=== PATIENT | female | born 1935 | race Caucasian/White ===

== ENCOUNTER 2017-04-30 14:48 | Inpatient (IN) | payer MEDICARE, BC ==
[~2017-04-30] VITALS: Ht 157.5 cm; Wt 39.7 kg
[~2017-04-30 14:48] MED LIST: ASPI-605 PO; CARB-93 PO; ESCI10TA PO; FLUD0.1T PO; LATA2.5D7 EACHEYE; MELA3TAB PO; QUET25TA PO; QUET50TA PO; RASA1TAB PO; ROSU20TA PO
[2017-04-30] MEDS ORDERED: DOCU250C14 PO (15:37)
[2017-04-30 15:54] LABS: CARBON DIOXIDE 27 mmol/L (21-32); CHLORIDE 105 mmol/L (98-107); CREATININE 1.2 mg/dL (0.6-1.3); GLUCOSE 248 mg/dL (74-106); POTASSIUM 3.7 mmol/L (3.5-5.1); UREA NITROGEN, BLOOD 25 mg/dL (7-18)
[2017-04-30 16:01] LABS: BASOPHILS # (AUTO) 0.1 K/uL (0.0-8.0); BASOPHILS % (AUTO) 0.5 % (0.0-2.0); EOSINOPHILS # (AUTO) 0.1 K/uL (0.0-0.7); EOSINOPHILS % (AUTO) 0.8 % (0.0-7.0); HEMATOCRIT 44.7 % (37-47); HEMOGLOBIN 15.1 G/DL (12.0-16.0); LYMPHOCYTES # (AUTO) 1.5 K/UL (0.8-4.8); LYMPHOCYTES % (AUTO) 12.8 % (20.5-51.5); MEAN CORPUSCULAR HEMOGLOBIN 31.9 UUG (27.0-31.0); MEAN CORPUSCULAR HGB CONC 34 g/dL (32.0-37.0); MEAN CORPUSCULAR VOLUME 94.4 FL (81.0-99.0); MONOCYTES # (AUTO) 0.5 K/UL (0.1-1.30); NEUTROPHILS # (AUTO) 9.2 K/UL (1.8-8.9); NEUTROPHILS % (AUTO) 81.9 % (38.5-71.5); PLATELET COUNT (AUTO) 258 K/UL (150-450); RED BLOOD CELL COUNT(AUTO) 4.74 MIL/UL (4.2-5.4); WHITE BLOOD COUNT (AUTO) 11.4 K/UL (4.0-11.2)
[2017-04-30 16:08] LABS: ALANINE AMINOTRANSFERASE 17 U/L (14-59); ALKALINE PHOSPHATASE 94 U/L (50-136); ASPARTATE AMINOTRANSFERASE 38 U/L (15-37); BILIRUBIN,DIRECT 0.1 mg/dL (0.0-0.2); BILIRUBIN,TOTAL 0.6 mg/dL (0.2-1.0); TOTAL PROTEIN, SERUM 8.5 g/dL (6.4-8.2)
--- NOTE | 2017-04-30 16:08 | NUR ---
PT RESTING IN BED, FAMILY AT THE BEDSIDE.
[2017-04-30] MEDS ORDERED: IV NORMAL SALINE 1000 ML BAG IV ONE (16:30)
[2017-04-30] MEDS ORDERED: PIPERACILLIN SODIUM/TAZOBACTAM 3.375 G in IV DEXTROSE 5% 50 ML IV ONE (16:30)
[2017-04-30] MEDS ORDERED: PIPERACILLIN/TAZOBACTAM/D5W 50 ML IV ONE (16:43)
[2017-04-30 17:21] LABS: *BILIRUBIN,URIN NEGATIVE (NEGATIVE); *BLOOD, URINE NEGATIVE (NEGATIVE); *CLARITY,URINE CLEAR (CLEAR); *COLOR,URINE YELLOW (YELLOW); *KETONES,URINE NEGATIVE (NEGATIVE); *PROTEIN,URINE 2+ (NEGATIVE); LEUKOCYTE ESTERASE ,URINE NEGATIVE (NEGATIVE); NITRITE, URINE NEGATIVE (NEGATIVE); UGLUCOSE TRACE (NEGATIVE)
[2017-04-30 17:28] LABS: BACTERIA,URINE NONE SEEN /HPF (NONE SEEN); RBC,URINE 0-3 /HPF (0-3); SQUAMOUS EPITHELIAL CELL,UR FEW /HPF (NONE SEEN); WBC,URINE 0-3 /HPF (0-3)
--- NOTE | 2017-04-30 18:05 | NUR ---
PT REMAINES ON CONTINEOUS MOITORING, VITAL STABLE AND UNCHANGED, NO S/S SEPSIS NOTED.
--- NOTE | 2017-04-30 18:40 | NUR ---
NEW ADMISSION TO ROOM 210 PATIENT ALERT AWAKE AND CONFUSED IN NO ACUTE DISTRESS. SR ON WIRE BRUSHER.
--- NOTE | 2017-04-30 19:00 | NUR ---
UNABLE TO FINISH ADMISSION ASSESSMENT, ENDORSED TO GALO TODD.
[2017-04-30] MEDS ORDERED: ZOLPIDEM 5 MG TABLET PO PRN (19:45)
[2017-04-30] MEDS ORDERED: ACETAMINOPHEN 325 MG TABLET PO PRN (19:45)
[2017-04-30] MEDS ORDERED: CEFTRIAXONE 1 G in IV DEXTROSE 5% 50 ML IV SCH (19:45)
[2017-04-30] MEDS ORDERED: Z GUARD REMEDY PASTE 57 GM TUBE TOP PRN (19:45)
[2017-04-30] MEDS ORDERED: HYDROCODONE/APAP 10-325 MG TABLET PO PRN (19:45)
[2017-04-30] MEDS ORDERED: ENOXAPARIN SODIUM 40 MG/0.4 ML DISP.SYRIN SQ SCH (19:45)
[2017-04-30] MEDS ORDERED: MAGNESIUM HYDROXIDE 30 ML LIQUID UDC PO PRN (19:45)
[2017-04-30] MEDS ORDERED: ONDANSETRON 4 MG/2 ML VIAL IV PRN (19:45)
[2017-04-30] MEDS ORDERED: HYDROCODONE/APAP 5-325MG TABLET PO PRN (19:45)
[2017-04-30 20:00] VITALS: BP 138/70
[2017-04-30] MEDS: MELATONIN 3 MG TABLET PO SCH (21:00)
[2017-04-30] MEDS: IV NS 1000 ML 1,000 ML IV PRN (21:21)
[2017-04-30] MEDS ORDERED: ESCITALOPRAM OXALATE 10 MG TABLET ONE (21:21)
[2017-04-30] MEDS: ESCITALOPRAM OXALATE 10 MG TABLET PO SCH (21:22)
[2017-04-30] MEDS: QUETIAPINE FUMARATE 25 MG TABLET PO SCH (21:22)
[2017-04-30] MEDS ORDERED: ATORVASTATIN 40 MG TABLET ONE (21:22)
[2017-04-30] MEDS: ATORVASTATIN 40 MG TABLET PO SCH (21:22)
[2017-04-30] MEDS ORDERED: QUETIAPINE FUMARATE 25 MG TABLET ONE (21:23)
[2017-04-30] MEDS ORDERED: CEFTRIAXONE 1 G VIAL ONE (21:35)
[2017-05-01 00:10] VITALS: BP 137/52
[2017-05-01 04:01] VITALS: BP 131/62
--- NOTE | 2017-05-01 06:00 | NUR ---
pt alert,oriented to her name only ,confused and incoherent at times,denies any pain,incontinent of bladder, had smear of stool, sinus tessie on monitor.ate dinner well 100% last night fed by daughter.vss,afebrile, kept clean and dry ,bed alarm active at all times, kept iv fluids, given rocephine without any adverse effects. kept attended.no changes overnight.
[2017-05-01 06:44] LABS: BASOPHILS % (AUTO) 0.1 % (0.0-2.0); EOSINOPHILS # (AUTO) 0.1 K/uL (0.0-0.7); EOSINOPHILS % (AUTO) 1.2 % (0.0-7.0); HEMATOCRIT 35.5 % (37-47); HEMOGLOBIN 12.3 G/DL (12.0-16.0); LYMPHOCYTES # (AUTO) 1.9 K/UL (0.8-4.8); LYMPHOCYTES % (AUTO) 20.5 % (20.5-51.5); MEAN CORPUSCULAR HEMOGLOBIN 32.4 UUG (27.0-31.0); MEAN CORPUSCULAR HGB CONC 35 g/dL (32.0-37.0); MEAN CORPUSCULAR VOLUME 93.8 FL (81.0-99.0); MONOCYTES # (AUTO) 0.5 K/UL (0.1-1.30); MONOCYTES % (AUTO) 5.6 % (0.0-11.0); NEUTROPHILS # (AUTO) 6.6 K/UL (1.8-8.9); NEUTROPHILS % (AUTO) 72.6 % (38.5-71.5); PLATELET COUNT (AUTO) 183 K/UL (150-450); RED BLOOD CELL COUNT(AUTO) 3.79 MIL/UL (4.2-5.4); WHITE BLOOD COUNT (AUTO) 9.1 K/UL (4.0-11.2)
[2017-05-01 07:00] LABS: CARBON DIOXIDE 27 mmol/L (21-32); CHLORIDE 106 mmol/L (98-107); CHOLESTEROL 121 mg/dL (<200); CREATININE 0.8 mg/dL (0.6-1.3); GLUCOSE 124 mg/dL (74-106); HDL CHOLESTEROL 41 mg/dL (40-60); MAGNESIUM 1.9 mg/dL (1.8-2.4); PHOSPHOROUS 3.2 mg/dL (2.5-4.9); POTASSIUM 3.2 mmol/L (3.5-5.1); TRIGLYCERIDES 84 MG/DL (30-150); UREA NITROGEN, BLOOD 15 mg/dL (7-18)
[2017-05-01 07:07] LABS: THYROID STIMULATING HORMONE 3.008 mIU/mL (0.358-3.740)
[2017-05-01] MEDS: PANTOPRAZOLE SODIUM 40 MG TABLET.DR PO SCH (08:01)
[2017-05-01] MEDS: CARBIDOPA/LEVODOPA 25-100MG TABLET PO SCH ×4 (08:01→19:15)
[2017-05-01] MEDS: DOCUSATE SODIUM 250 MG CAPSULE PO SCH ×2 (08:01→17:11)
[2017-05-01] MEDS: FLUDROCORTISONE ACETATE 0.1 MG TABLET PO SCH (08:01)
[2017-05-01] MEDS: QUETIAPINE FUMARATE 25 MG TABLET PO SCH ×3 (10:07→21:40)
[2017-05-01] MEDS: IV NS 1000 ML 1,000 ML IV PRN (11:23)
[2017-05-01 11:43] VITALS: BP 159/70
[2017-05-01] MEDS ORDERED: POTASSIUM CHLORIDE 20 MEQ POWDER PACKET PO ONE (12:00)
--- NOTE | 2017-05-01 14:54 | NUR ---
PATIENT SEEN BY DR. DUONG AND BY DR. BARONE.
[2017-05-01 15:33] VITALS: BP 115/78
--- NOTE | 2017-05-01 18:43 | NUR ---
END OF SHIFT NOTE: PATIENT ALERT AND ORIENTED WNL. NO S/S OF DISTRESS THROUGHOUT SHIFT. VSS. NO S/S OF PAIN OBSERVED. TURNED AND REPOSITIONED EVERY 2 HOURS AND PRN. NEEDS MET BY STAFF.
--- NOTE | 2017-05-01 19:40 | NUR ---
Received pt in bed, alert and oriented only to name. Confused and incoherent at times but speech is mostly clear. On telemetry with monitor showing sinus rhythm and HR 63. Continuing IV fluids as ordered, IV site patent and intact w/ no s/sx infiltration. Safety measures and fall precautions maintained. Continue current plan of care.
[2017-05-01 20:25] VITALS: BP 140/63
[2017-05-01] MEDS ORDERED: CEFTRIAXONE 1 G in IV DEXTROSE 5% 50 ML IV SCH (21:00)
[2017-05-01] MEDS: ATORVASTATIN 40 MG TABLET PO SCH (21:40)
[2017-05-01] MEDS: ESCITALOPRAM OXALATE 10 MG TABLET PO SCH (21:41)
[2017-05-01] MEDS: MELATONIN 3 MG TABLET PO SCH (21:41)
[2017-05-01] MEDS: ENOXAPARIN SODIUM 30 MG/0.3 ML DISP.SYRIN SUBCUT SCH (21:42)
[2017-05-02 00:21] VITALS: BP 127/61
[2017-05-02] MEDS: IV NS 1000 ML 1,000 ML IV PRN ×2 (02:58→15:10)
[2017-05-02 04:00] VITALS: BP 150/51
[2017-05-02] MEDS: CARBIDOPA/LEVODOPA 25-100MG TABLET PO SCH ×5 (06:43→17:50)
[2017-05-02] MEDS: PANTOPRAZOLE SODIUM 40 MG TABLET.DR PO SCH (06:43)
[2017-05-02] MEDS: QUETIAPINE FUMARATE 25 MG TABLET PO SCH ×3 (08:15→21:15)
[2017-05-02] MEDS: FLUDROCORTISONE ACETATE 0.1 MG TABLET PO SCH (08:15)
[2017-05-02] MEDS: DOCUSATE SODIUM 250 MG CAPSULE PO SCH ×2 (08:16→17:50)
[2017-05-02 08:18] LABS: CARBON DIOXIDE 26 mmol/L (21-32); CHLORIDE 100 mmol/L (98-107); CREATININE 0.8 mg/dL (0.6-1.3); GLUCOSE 124 mg/dL (74-106); POTASSIUM 3.9 mmol/L (3.5-5.1); UREA NITROGEN, BLOOD 10 mg/dL (7-18)
[2017-05-02 11:22] VITALS: BP 152/51
--- NOTE | 2017-05-02 16:08 | NUR ---
IN ROOM WITH PATIENT. DOES NOT WANT PAT TO HAVE PARKINSONS MEDICATION AT THIS TIME, SAYS PT "GETS TOO SEDATED" MEDICATION WAS ALREADY CRUSHED, THROWN IN SHARPS.
[2017-05-02 16:15] VITALS: BP 160/71
--- NOTE | 2017-05-02 17:42 | NUR ---
AT BEDSIDE, ASSISTING PT WITH DINNER. PT TOLERATING WELL AND EATING A LOT MORE THAN EARLIER TODAY. ALL SAFETY AND COMFORT MEASURES MAINTAINED THROUGHOUT SHIFT, CALL LIGHT IN REACH
--- NOTE | 2017-05-02 19:20 | NUR ---
Received pt in bed, appearing to be asleep but easily arousable to name being called. Alert and oriented to name only. No apparent distress noted. Safety measures and fall precautions maintained. Continue current plan of care. Call light within reach. Continue current plan of care.
[2017-05-02 20:26] VITALS: BP 99/43
[2017-05-02] MEDS: ATORVASTATIN 40 MG TABLET PO SCH (21:15)
[2017-05-02] MEDS: MELATONIN 3 MG TABLET PO SCH (21:15)
[2017-05-02] MEDS: ESCITALOPRAM OXALATE 10 MG TABLET PO SCH (21:15)
[2017-05-02] MEDS: ENOXAPARIN SODIUM 30 MG/0.3 ML DISP.SYRIN SUBCUT SCH (21:16)
[2017-05-03] MEDS: IV NS 1000 ML 1,000 ML IV PRN (04:32)
[2017-05-03 05:51] VITALS: BP 105/62
[2017-05-03] MEDS: PANTOPRAZOLE SODIUM 40 MG TABLET.DR PO SCH (06:10)
[2017-05-03] MEDS: CARBIDOPA/LEVODOPA 25-100MG TABLET PO SCH ×2 (06:12→12:02)
[2017-05-03 06:25] LABS: ALANINE AMINOTRANSFERASE 27 U/L (14-59); ALKALINE PHOSPHATASE 68 U/L (50-136); ASPARTATE AMINOTRANSFERASE 21 U/L (15-37); BASOPHILS % (AUTO) 0.5 % (0.0-2.0); BILIRUBIN,TOTAL 0.5 mg/dL (0.2-1.0); CARBON DIOXIDE 30 mmol/L (21-32); CHLORIDE 103 mmol/L (98-107); CREATININE 0.9 mg/dL (0.6-1.3); EOSINOPHILS # (AUTO) 0.1 K/uL (0.0-0.7); EOSINOPHILS % (AUTO) 1.2 % (0.0-7.0); GLUCOSE 122 mg/dL (74-106); HEMOGLOBIN 13.4 G/DL (12.0-16.0); LYMPHOCYTES # (AUTO) 1.8 K/UL (0.8-4.8); LYMPHOCYTES % (AUTO) 27.3 % (20.5-51.5); MAGNESIUM 2.2 mg/dL (1.8-2.4); MEAN CORPUSCULAR HEMOGLOBIN 32.2 UUG (27.0-31.0); MEAN CORPUSCULAR HGB CONC 34 g/dL (32.0-37.0); MONOCYTES # (AUTO) 0.5 K/UL (0.1-1.30); NEUTROPHILS # (AUTO) 4.2 K/UL (1.8-8.9); PHOSPHOROUS 4.4 mg/dL (2.5-4.9); PLATELET COUNT (AUTO) 189 K/UL (150-450); POTASSIUM 3.9 mmol/L (3.5-5.1); RED BLOOD CELL COUNT(AUTO) 4.15 MIL/UL (4.2-5.4); UREA NITROGEN, BLOOD 14 mg/dL (7-18)
[2017-05-03 06:33] LABS: WHITE BLOOD COUNT (AUTO) 6.6 K/UL (4.0-11.2)
--- NOTE | 2017-05-03 07:12 | NUR ---
Pt in bed slept well throughout shift. Currently awake and alert, oriented to name only. Responds to name being called. Episodes of resisting care at times. No distress noted. No complaints of pain or discomfort throughout shift. Kept clean and dry. Call light within reach. Side rails up x2, bed locked and in lowest position.
--- NOTE | 2017-05-03 07:20 | NUR ---
PT SLEEPING IN BED, AWAKENS TO NAME, NO NEEDS AT THIS TIME, ALL SAFETY AND COMFORT MEASURES ATTENDED TO, CALL LIGHT IN REACH WILL CONTINUE TO MONITOR
[2017-05-03] MEDS: FLUDROCORTISONE ACETATE 0.1 MG TABLET PO SCH (08:02)
[2017-05-03] MEDS: DOCUSATE SODIUM 250 MG CAPSULE PO SCH (08:03)
[2017-05-03] MEDS: QUETIAPINE FUMARATE 25 MG TABLET PO SCH (08:03)
[2017-05-03 12:01] VITALS: BP 155/58
--- NOTE | 2017-05-03 12:03 | NUR ---
FAMILY AT BEDSIDE, DOES NOT WANT PATIENT TO HAVE PARKINSONS MED AT THIS TIME, WANTS TO VISIT WITH HER AND STATES IT MAKES HER CONFUSED
[2017-05-03] MEDS ORDERED: ROSU10TA PO (12:23)
--- NOTE | 2017-05-03 13:30 | NUR ---
DISCHARGE PROTOCOL FOLLOWED, IV REMOVED WITH NO REDNESS OR IRRITATION NOTED. DISCHARGE INSTRUCTIONS PROVIDED TO PATIENT, DAUGHTER AND . PT HAS NO BELONGINGS, PT TAKEN DOWN IN WHEELCHAIR AND LEFT IN PRIVATE CAR WITH DAUGHTER
== END 2017-05-03 13:45 | disposition home health service (06) | DRG 100 ==
LOC: ER 14:48 → TELE 17:55 → MED 05-02 09:15
DX: R56.9 Unspecified convulsions (principal); N17.0 Acute kidney failure with tubular necrosis; E87.2 Acidosis; D68.59 Other primary thrombophilia; G20 Parkinson's disease; F03.90 Unspecified dementia, unspecified severity, without behavioral disturbance, psychotic disturbance, mood disturbance, and anxiety; E11.9 Type 2 diabetes mellitus without complications; E78.5 Hyperlipidemia, unspecified; Z79.899 Other long term (current) drug therapy; Z87.820 Personal history of traumatic brain injury
CPT/HCPCS: 36415; 70030-TC; 70450; 71010; 83605; 83735; 84100; 84443; 85025; 85730; 87040; 87086; 92523; 93005; 95819; 97110; 97116; 97530; A4663; C1758; J0696; J1650; J2543; J7030; J7060

== ENCOUNTER 2017-08-26 14:07 | Inpatient (IN) | payer MEDICARE, BC ==
[~2017-08-26] VITALS: Ht 157.5 cm; Wt 53.1 kg
[~2017-08-26 14:07] MED LIST changes: -ASPI-605 PO; +DOCU250C14 PO; -LATA2.5D7 EACHEYE; +ROSU10TA PO; -ROSU20TA PO
[2017-08-26] MEDS ORDERED: ACET-2154 PO (14:20)
[2017-08-26] MEDS ORDERED: LATA2.5D2 EACHEYE (14:20)
[2017-08-26 14:56] LABS: BASOPHILS # (AUTO) 0.1 K/uL (0.0-8.0); BASOPHILS % (AUTO) 0.9 % (0.0-2.0); EOSINOPHILS % (AUTO) 0.1 % (0.0-7.0); HEMATOCRIT 39.9 % (31.2-41.9); HEMOGLOBIN 13.1 g/dL (10.9-14.3); LYMPHOCYTES # (AUTO) 1.2 K/uL (20.0-40.0); LYMPHOCYTES % (AUTO) 9.6 % (20.5-51.5); MEAN CORPUSCULAR HGB CONC 33 g/dL (32.3-35.6); MEAN CORPUSCULAR VOLUME 94.5 fL (75.5-95.3); MONOCYTES # (AUTO) 0.8 K/uL (2.0-10.0); MONOCYTES % (AUTO) 6.2 % (0.0-11.0); NEUTROPHILS # (AUTO) 10.1 K/uL (1.8-8.9); NEUTROPHILS % (AUTO) 83.2 % (38.5-71.5); PLATELET COUNT (AUTO) 232 K/uL (179-408); RED BLOOD CELL COUNT(AUTO) 4.22 MIL/uL (3.63-4.92); WHITE BLOOD COUNT (AUTO) 12.2 K/uL (3.8-11.8)
[2017-08-26 15:09] LABS: ALANINE AMINOTRANSFERASE 69 U/L (14-59); ALKALINE PHOSPHATASE 81 U/L (50-136); ASPARTATE AMINOTRANSFERASE 56 U/L (15-37); BILIRUBIN,DIRECT 0.2 mg/dL (0.0-0.2); BILIRUBIN,TOTAL 0.5 mg/dL (0.2-1.0); CARBON DIOXIDE 33 mmol/L (21-32); CHLORIDE 125 mmol/L (98-107); CREATININE 1.2 mg/dL (0.6-1.3); GLUCOSE 204 mg/dL (74-106); POTASSIUM 3.6 mmol/L (3.5-5.1); TOTAL PROTEIN, SERUM 7.1 g/dL (6.4-8.2); UREA NITROGEN, BLOOD 41 mg/dL (7-18)
[2017-08-26] MEDS ORDERED: IV D5 1/2 NS 1000 ML 1,000 ML IV ONE (15:15)
[2017-08-26 15:34] LABS: THYROID STIMULATING HORMONE 0.884 mIU/mL (0.358-3.740)
--- NOTE | 2017-08-26 15:56 | NUR ---
Lovenox dose verified with Jannet TODD.
[2017-08-26] MEDS ORDERED: ENOXAPARIN SODIUM 40 MG/0.4 ML DISP.SYRIN SQ ONE ×2 (16:00→16:11)
--- NOTE | 2017-08-26 16:16 | NUR ---
pt out of ER for CT.
--- NOTE | 2017-08-26 16:42 | NUR ---
PT PRODUCED 50 MLOF URINE, COLLECTED AND SENT TO LAB.
[2017-08-26 16:49] LABS: *BILIRUBIN,URIN NEGATIVE (NEGATIVE); *BLOOD, URINE 1+ (NEGATIVE); *CLARITY,URINE SLIGHTLY CLOUDY (CLEAR); *COLOR,URINE YELLOW (YELLOW); *KETONES,URINE NEGATIVE (NEGATIVE); *PROTEIN,URINE 2+ (NEGATIVE); LEUKOCYTE ESTERASE ,URINE TRACE (NEGATIVE); NITRITE, URINE NEGATIVE (NEGATIVE)
[2017-08-26 17:01] LABS: UGLUCOSE 1+ (NEGATIVE)
[2017-08-26 17:03] LABS: BACTERIA,URINE MODERATE /HPF (NONE SEEN); MUCUS,URINE MODERATE /LPF (0-FEW); SQUAMOUS EPITHELIAL CELL,UR MANY /HPF (NONE SEEN)
[2017-08-26 19:00] VITALS: BP 112/50
[2017-08-26] MEDS ORDERED: CEFTRIAXONE 1 G in IV DEXTROSE 5% 50 ML IV ONE (19:00)
[2017-08-26] MEDS ORDERED: CEFTRIAXONE 1 G VIAL ONE (19:22)
[2017-08-26] MEDS ORDERED: ACETAMINOPHEN 325 MG TABLET PO PRN ×2 (19:45)
[2017-08-26] MEDS ORDERED: ONDANSETRON 4 MG/2 ML VIAL IV PRN (19:45)
[2017-08-26] MEDS ORDERED: CEFTRIAXONE 1 G in IV DEXTROSE 5% 50 ML IV SCH (19:45)
[2017-08-26] MEDS ORDERED: FAMOTIDINE. 20 MG/2 ML VIAL IV SCH (21:00)
[2017-08-26] MEDS ORDERED: ACETAMINOPHEN 650 MG SUPP.RECT RC PRN (21:00)
[2017-08-26] MEDS ORDERED: DOCUSATE SODIUM 250 MG CAPSULE PO SCH (21:00)
[2017-08-26] MEDS ORDERED: DABIGATRAN ETEXILATE MESYLATE 75 MG CAPSULE PO SCH (21:00)
--- NOTE | 2017-08-26 21:26 | NUR ---
Pt. admitted to TELE, under care of Dr. Torres. Belongs List completed
--- NOTE | 2017-08-26 21:40 | NUR ---
PATIENT BROUGHT IN FROM ER, VIA STRETCHER , ACCOMPANIED BY THE DAUGHTER,ADMITTED TO TELE. PATIENT SLEEPING, EASILY AROUSING TO VERBAL/TACTILE RESPONSE. ADMISSION INFORMATION OBTAINED FROM THE DAUGHTER. NO DISTRESS NOTED. PATIENT USING O2 @ 2LPM VIA NC. FIELD RECRUITER NOTED WITH PVC'S. IV FLUID INFUSING ORDERED AT ED. V/S WNL . SKIN ASSESSMENT DONE AND PICTURES TAKEN. KEPT CLEAN AND DRY. WILL CONTINUE TO MONITOR
[2017-08-26] MEDS ORDERED: FAMOTIDINE. 20 MG/2 ML VIAL IV ONE (22:48)
[2017-08-26] MEDS: IV D5W 1000ML 1,000 ML IV PRN (23:30)
[2017-08-27] VITALS: BP 156/49
--- NOTE | 2017-08-27 | NUR ---
PATIENT ON NPO ORDERED
[2017-08-27 04:00] VITALS: BP 147/54
--- NOTE | 2017-08-27 06:38 | NUR ---
PATIENT SLEEPING INTERMITTENTLY WITH NO DISTRESS . ON O2 @ 2LPM VIA NC. CONTINUING ON IV FLUIDS ORDERED. F/C DRAINING YELLOW URINE. CNC MILLING MACHINIST SHOWS SR WITH OCCASIONAL PVC'S. CONTINUING ON NPO. SAFETY MEASURES OBSERVED. CALL LIGHT IN REACH
[2017-08-27 06:52] LABS: BASOPHILS % (AUTO) 0.2 % (0.0-2.0); EOSINOPHILS % (AUTO) 0.3 % (0.0-7.0); HEMATOCRIT 37.9 % (31.2-41.9); HEMOGLOBIN 12.3 g/dL (10.9-14.3); LYMPHOCYTES # (AUTO) 1.6 K/uL (20.0-40.0); LYMPHOCYTES % (AUTO) 13.1 % (20.5-51.5); MEAN CORPUSCULAR HEMOGLOBIN 30.9 uug (24.7-32.8); MEAN CORPUSCULAR HGB CONC 33 g/dL (32.3-35.6); MONOCYTES # (AUTO) 0.7 K/uL (2.0-10.0); NEUTROPHILS # (AUTO) 9.6 K/uL (1.8-8.9); NEUTROPHILS % (AUTO) 80.4 % (38.5-71.5); PLATELET COUNT (AUTO) 215 K/uL (179-408); RED BLOOD CELL COUNT(AUTO) 3.99 MIL/uL (3.63-4.92); WHITE BLOOD COUNT (AUTO) 11.9 K/uL (3.8-11.8)
[2017-08-27] MEDS ORDERED: PANTOPRAZOLE SODIUM 40 MG TABLET.DR PO SCH (07:00)
[2017-08-27 07:25] LABS: ALANINE AMINOTRANSFERASE 71 U/L (14-59); ALKALINE PHOSPHATASE 73 U/L (50-136); ASPARTATE AMINOTRANSFERASE 42 U/L (15-37); BILIRUBIN,TOTAL 0.4 mg/dL (0.2-1.0); CARBON DIOXIDE 32 mmol/L (21-32); CHLORIDE 124 mmol/L (98-107); CHOLESTEROL 203 mg/dL (<200); CREATININE 0.8 mg/dL (0.6-1.3); GLUCOSE 233 mg/dL (74-106); HDL CHOLESTEROL 30 mg/dL (40-60); MAGNESIUM 2.5 mg/dL (1.8-2.4); PHOSPHOROUS 2.6 mg/dL (2.5-4.9); POTASSIUM 3.4 mmol/L (3.5-5.1); TOTAL PROTEIN, SERUM 6.4 g/dL (6.4-8.2); TRIGLYCERIDES 215 MG/DL (30-150); UREA NITROGEN, BLOOD 32 mg/dL (7-18)
[2017-08-27] MEDS ORDERED: FLUDROCORTISONE ACETATE 0.1 MG TABLET PO SCH (09:00)
[2017-08-27] MEDS ORDERED: CARBIDOPA/LEVODOPA 25-100MG TABLET PO SCH (09:00)
[2017-08-27] MEDS: ENOXAPARIN SODIUM 60 MG/0.6 ML DISP.SYRIN SQ SCH ×2 (09:47→21:22)
[2017-08-27] MEDS: FAMOTIDINE. 20 MG/2 ML VIAL IV SCH (10:00)
[2017-08-27 12:08] VITALS: BP 132/56
[2017-08-27 15:45] VITALS: BP 149/69
[2017-08-27] MEDS: IV D5W 1000ML 1,000 ML IV PRN (16:15)
[2017-08-27] MEDS: CEFTRIAXONE 1 G in IV DEXTROSE 5% 50 ML IV SCH (17:04)
[2017-08-27 19:00] VITALS: BP 137/59
--- NOTE | 2017-08-27 19:47 | NUR ---
RECEIVED SHIFT REPORT FROM DAY SHIFT NURSE. PATIENT RESTING COMFORTABLY IN BED. NO S/S OF DISTRESS. STABLE CONDITION. PATIENT IS NON-VERBAL, CONFUSED. OXYGEN ON. BED IN LOCKED/LOW POSITION, SIDE RAILS UP X2, BED ALARM ON. SAFETY/ COMFORT WILL BE PROVIDED.
[2017-08-27] MEDS ORDERED: CLONIDINE TTS 2 PATCH TD SCH (23:45)
[2017-08-28] VITALS: BP 188/53
[2017-08-28] MEDS ORDERED: CLONIDINE TTS 2 PATCH TD ONE (00:26)
[2017-08-28] MEDS: LATANOPROST OPHT DROP 2.5 ML BOTTLE EACHEYE SCH ×2 (02:28→21:59)
[2017-08-28 04:00] VITALS: BP 150/63
[2017-08-28 06:52] LABS: BASOPHILS % (AUTO) 0.2 % (0.0-2.0); EOSINOPHILS % (AUTO) 0.4 % (0.0-7.0); HEMATOCRIT 36.8 % (31.2-41.9); LYMPHOCYTES # (AUTO) 1.2 K/uL (20.0-40.0); LYMPHOCYTES % (AUTO) 10.5 % (20.5-51.5); MEAN CORPUSCULAR HEMOGLOBIN 30.5 uug (24.7-32.8); MEAN CORPUSCULAR HGB CONC 33 g/dL (32.3-35.6); MEAN CORPUSCULAR VOLUME 93.8 fL (75.5-95.3); MONOCYTES # (AUTO) 0.5 K/uL (2.0-10.0); MONOCYTES % (AUTO) 4.4 % (0.0-11.0); NEUTROPHILS # (AUTO) 9.6 K/uL (1.8-8.9); NEUTROPHILS % (AUTO) 84.5 % (38.5-71.5); PLATELET COUNT (AUTO) 248 K/uL (179-408); RED BLOOD CELL COUNT(AUTO) 3.92 MIL/uL (3.63-4.92); WHITE BLOOD COUNT (AUTO) 11.4 K/uL (3.8-11.8)
[2017-08-28 07:06] LABS: CARBON DIOXIDE 29 mmol/L (21-32); CHLORIDE 117 mmol/L (98-107); CREATININE 0.8 mg/dL (0.6-1.3); GLUCOSE 221 mg/dL (74-106); MAGNESIUM 2.4 mg/dL (1.8-2.4); PHOSPHOROUS 2.6 mg/dL (2.5-4.9); POTASSIUM 3.1 mmol/L (3.5-5.1); UREA NITROGEN, BLOOD 25 mg/dL (7-18)
[2017-08-28 07:28] LABS: URIC ACID 4.2 mg/dL (2.6-6.0)
--- NOTE | 2017-08-28 08:00 | NUR ---
AWAKE CONFUSED ,FORGETFUL ORTX1 ONLY NAME NO SOB OR PAIN CONTINUE IVF KEEP NPO ON FALL /ASPIRATION PRECAUTION BED ALARM ON AND CALL LIGHT IN REACH
[2017-08-28] MEDS: ENOXAPARIN SODIUM 60 MG/0.6 ML DISP.SYRIN SQ SCH ×2 (08:49→21:58)
[2017-08-28] MEDS: FAMOTIDINE. 20 MG/2 ML VIAL IV SCH (11:22)
[2017-08-28 12:09] VITALS: BP 164/49
--- NOTE | 2017-08-28 12:30 | NUR ---
FAMILY AT BEDSIDE PATIENT WAS HUNGRY Kyler SNIDER WAS INFORM AND ORDER ST EVAL PRIOR START FEEDING PATIENT WAS ORDER AND DAUGHTER WAS EXPLAINED
[2017-08-28] MEDS ORDERED: POTASSIUM CHLORIDE 50 ML IV SCH (13:00)
[2017-08-28] MEDS: IV D5W 1000ML 1,000 ML IV PRN (13:04)
[2017-08-28 14:30] VITALS: BP 155/69
[2017-08-28] MEDS: POTASSIUM CHLORIDE 10 MEQ in IV NORMAL SALINE 50 ML IV SCH ×2 (15:22→16:27)
[2017-08-28] MEDS: IV D5 1/2 NS 1000 ML 1,000 ML IV PRN (17:26)
[2017-08-28] MEDS: CEFTRIAXONE 1 G in IV DEXTROSE 5% 50 ML IV SCH (17:27)
--- NOTE | 2017-08-28 18:00 | NUR ---
HEMODYNAMIC STATUS STABLE SAFETY MEASURE PROVIDED CALL LIGHT IN REACH AND BED ALARM ON
[2017-08-28 20:00] VITALS: BP 115/61
--- NOTE | 2017-08-28 20:17 | NUR ---
RECEIVED SHIFT REPORT FROM DAY SHIFT NURSE. PATIENT RESTING COMFORTABLY IN BED. ELEVATED BP BUT NOTIFIED FROM DAY SHIFT NURSE THAT MD INFORMED OF ELEVATED BP AND THAT CATAPRES 0.2 MG PLACED YESTERDAY WILL KICK IN SOON AND DECREASE THE BLOOD PRESSURE. OTHERWISE, STABLE CONDITION, NO S/S OF DISTRESS. SWALLOW EVAL PENDING, CONTINUES TO BE NPO.
[2017-08-29 00:53] VITALS: BP 100/58
[2017-08-29 04:46] VITALS: BP 126/61
[2017-08-29 07:32] LABS: CARBON DIOXIDE 29 mmol/L (21-32); CHLORIDE 117 mmol/L (98-107); CREATININE 0.6 mg/dL (0.6-1.3); GLUCOSE 208 mg/dL (74-106); POTASSIUM 3.2 mmol/L (3.5-5.1); UREA NITROGEN, BLOOD 21 mg/dL (7-18)
[2017-08-29] MEDS: FAMOTIDINE. 20 MG/2 ML VIAL IV SCH (08:02)
[2017-08-29] MEDS: ENOXAPARIN SODIUM 60 MG/0.6 ML DISP.SYRIN SQ SCH ×2 (08:03→20:40)
[2017-08-29 11:07] VITALS: BP 139/66
[2017-08-29] MEDS ORDERED: POTASSIUM CHLORIDE 20 MEQ TAB.PRT.SR PO ONE ×2 (14:30→17:30)
[2017-08-29 15:35] VITALS: BP 115/47
[2017-08-29] MEDS: CEFTRIAXONE 1 G in IV DEXTROSE 5% 50 ML IV SCH (17:31)
[2017-08-29 20:00] VITALS: BP 121/61
[2017-08-29] MEDS: LATANOPROST OPHT DROP 2.5 ML BOTTLE EACHEYE SCH (21:27)
[2017-08-30] MEDS: IV D5 1/2 NS 1000 ML 1,000 ML IV PRN ×2 (00:17→17:07)
--- NOTE | 2017-08-30 06:14 | NUR ---
PATIENT ASLEEP IN BED. NO S/S OF PAIN OR DISCOMFORT. NO RESP. DISTRESS NOTED. IVF INFUSING WELL. SLEPT WELL THROUGHOUT THE NIGHT. BED ALARM ON. CALL LIGHT IN REACH. ALL NEEDS ATTENDED. WILL CONTINUE TO MONITOR AND ASSESS.
[2017-08-30 06:29] VITALS: BP 153/85
[2017-08-30 07:09] LABS: CARBON DIOXIDE 28 mmol/L (21-32); CHLORIDE 116 mmol/L (98-107); CREATININE 0.7 mg/dL (0.6-1.3); GLUCOSE 207 mg/dL (74-106); POTASSIUM 3.6 mmol/L (3.5-5.1); UREA NITROGEN, BLOOD 16 mg/dL (7-18)
[2017-08-30] MEDS: ENOXAPARIN SODIUM 60 MG/0.6 ML DISP.SYRIN SQ SCH ×2 (07:58→20:34)
[2017-08-30] MEDS: FAMOTIDINE. 20 MG/2 ML VIAL IV SCH (08:00)
[2017-08-30 11:08] VITALS: BP 164/81
--- NOTE | 2017-08-30 12:27 | NUR ---
WOUND CARE CONSULT: PT PRESENTS WITH IMMOBILITY AND DEEP TISSUE INJURY (INTACT) TO LEFT FOOT WITH EDEMA, INTACT BLISTER TO RT FOOT, PRESENT ON ADMISSION. RECOMMENDATIONS MADE FOR SKIN PROTECTION AND WOUND CARE. DISCUSSED WITH NURSING STAFF. PT ON FIRST STEP MATTRESS. ALL SKIN PROTECTION MEASURES IN PLACE. CURRENT EDEN SCORE IS 13. WILL SEE PRN. YUN IN AGREEMENT WITH PLAN OF CARE. Addendum: 08/30/17 at 1228 by PIPPA CERVANTES RN Amended: Links added.
[2017-08-30] MEDS ORDERED: Z GUARD REMEDY PASTE 57 GM TUBE TOP PRN (12:30)
[2017-08-30 15:20] VITALS: BP 131/51
[2017-08-30] MEDS: CEFTRIAXONE 1 G in IV DEXTROSE 5% 50 ML IV SCH (17:06)
[2017-08-30 20:00] VITALS: BP 170/74
--- NOTE | 2017-08-30 20:30 | NUR ---
CALLED OUT TO DR. PANKAJ SANFORD TO INFORM HIM OF PATIENTS HIGH BLOOD PRESSURE. WAITING FOR CALL BACK.
[2017-08-30] MEDS: Z GUARD REMEDY PASTE 57 GM TUBE TOP SCH (20:33)
[2017-08-30] MEDS: LATANOPROST OPHT DROP 2.5 ML BOTTLE EACHEYE SCH (20:35)
--- NOTE | 2017-08-30 20:55 | NUR ---
RECEIVED ORDER FOR PATIENT TO HAVE NORCO 1 TAB PO PRN FOR PAIN. FACIAL GRIMACE NOTED, AND IF PAIN DOESN'T DECREASE TO CALL MD BACK FOR FURTHER ORDERS. MD AWARE OF HIGH BP. WILL CONTINUE TO MONITOR.
[2017-08-30] MEDS ORDERED: HYDROCODONE/APAP 5-325MG TABLET PO PRN (21:00)
--- NOTE | 2017-08-30 22:05 | NUR ---
NOTIFIED DR. LIRA THAT PATIENTS BLOOD PRESSURE IS DOWN TO 164/64. ALL OTHER VSS. NO NEW ORDERS AT THIS TIME. MD WILL FOLLOW UP IN AM. WILL CONTINUE TO MONITOR.
--- NOTE | 2017-08-31 06:01 | NUR ---
PATIENT ASLEEP IN BED. SLEPT WELL. IVF INFUSING WELL. NO RESP. DISTRESS NOTED. NO S/S OF PAIN OR DISCOMFORT. REPOSITIONED TO SIDE. BILATERAL HEELS OFF-LOADED FOR PRESSURE RELIEF. CALL LIGHT IN REACH. ALL NEEDS ATTENDED. WILL CONTINUE TO MONITOR.
[2017-08-31 06:26] VITALS: BP 119/99
[2017-08-31] MEDS: IV D5 1/2 NS 1000 ML 1,000 ML IV PRN ×2 (07:18→21:37)
--- NOTE | 2017-08-31 07:30 | NUR ---
received client in bed asleep. semi fowlers position. no apparent signs and symptoms of pain, distress, discomfort and SOB. bed at lowest position for safety and call light within reach for assistance. air mattress in place and bilateral heels offloading
[2017-08-31] MEDS: FAMOTIDINE. 20 MG/2 ML VIAL IV SCH (09:57)
[2017-08-31] MEDS: Z GUARD REMEDY PASTE 57 GM TUBE TOP SCH ×2 (10:03→21:37)
--- NOTE | 2017-08-31 10:15 | NUR ---
Client, daughter and in the room having a consultation on the client's condition
[2017-08-31] MEDS: RIVAROXABAN 15 MG TABLET PO SCH ×2 (11:16→18:21)
[2017-08-31 15:16] VITALS: BP 105/39
[2017-08-31] MEDS: CEFTRIAXONE 1 G in IV DEXTROSE 5% 50 ML IV SCH (18:18)
--- NOTE | 2017-08-31 19:31 | NUR ---
Client is in bed awake, alert and oriented times 1. Client has been compliant with medication and nursing care. Client bilateral heels are offloading and open to air. Client is laying supine in a high fowlers position. Client is in no apparent signs and symptoms of SOB, pain, distress or discomfort. Family has been by bedside
[2017-08-31 20:00] VITALS: BP 181/59
[2017-08-31] MEDS: METOPROLOL TARTRATE 25 MG TABLET PO SCH (21:37)
[2017-08-31] MEDS: LATANOPROST OPHT DROP 2.5 ML BOTTLE EACHEYE SCH (21:38)
--- NOTE | 2017-08-31 21:40 | NUR ---
NURSING CLINICAL NOTE: Pt has elevated BP of 181/59, no S/S noted. made aware, and ordered metoprolol. orders are carried will continue to monitor
[2017-08-31 22:00] VITALS: BP 181/59
--- NOTE | 2017-08-31 22:56 | NUR ---
NURSING CLINICAL NOTE: PT'S bp is trending down to 164/64. pt is asymptomatic. will continue to monitor
[2017-09-01 00:24] VITALS: BP 163/69
[2017-09-01 04:00] VITALS: BP 121/82
[2017-09-01 05:54] VITALS: BP 121/82
[2017-09-01] MEDS: METOPROLOL TARTRATE 25 MG TABLET PO SCH ×3 (06:18→21:43)
[2017-09-01 07:32] LABS: BASOPHILS % (AUTO) 0.5 % (0.0-2.0); EOSINOPHILS # (AUTO) 0.1 K/uL (0.0-0.7); HEMATOCRIT 33.2 % (31.2-41.9); HEMOGLOBIN 11.4 g/dL (10.9-14.3); LYMPHOCYTES # (AUTO) 1.1 K/uL (20.0-40.0); MEAN CORPUSCULAR HGB CONC 34 g/dL (32.3-35.6); MEAN CORPUSCULAR VOLUME 90.2 fL (75.5-95.3); MONOCYTES # (AUTO) 0.4 K/uL (2.0-10.0); MONOCYTES % (AUTO) 5.2 % (0.0-11.0); NEUTROPHILS # (AUTO) 6.1 K/uL (1.8-8.9); NEUTROPHILS % (AUTO) 79.3 % (38.5-71.5); PLATELET COUNT (AUTO) 277 K/uL (179-408); RED BLOOD CELL COUNT(AUTO) 3.68 MIL/uL (3.63-4.92); WHITE BLOOD COUNT (AUTO) 7.7 K/uL (3.8-11.8)
[2017-09-01 07:33] LABS: ALANINE AMINOTRANSFERASE 66 U/L (14-59); ALKALINE PHOSPHATASE 78 U/L (50-136); ASPARTATE AMINOTRANSFERASE 37 U/L (15-37); BILIRUBIN,TOTAL 0.3 mg/dL (0.2-1.0); CARBON DIOXIDE 27 mmol/L (21-32); CHLORIDE 105 mmol/L (98-107); CREATININE 0.6 mg/dL (0.6-1.3); GLUCOSE 165 mg/dL (74-106); MAGNESIUM 1.9 mg/dL (1.8-2.4); POTASSIUM 3.3 mmol/L (3.5-5.1); TOTAL PROTEIN, SERUM 5.4 g/dL (6.4-8.2); UREA NITROGEN, BLOOD 9 mg/dL (7-18)
--- NOTE | 2017-09-01 08:00 | NUR ---
AWAKE COOPERATE VS STABLE NO SOB OR PAIN ON ASPIRATION AND FALL PRECAUTION BED ALARM ON AND CALL LIGHT IN REACH
[2017-09-01] MEDS: FAMOTIDINE 20 MG TABLET PO SCH (08:48)
[2017-09-01] MEDS: Z GUARD REMEDY PASTE 57 GM TUBE TOP SCH ×2 (08:49→21:42)
[2017-09-01] MEDS: RIVAROXABAN 15 MG TABLET PO SCH ×2 (08:49→16:57)
[2017-09-01] MEDS: POTASSIUM PHOSPHATE MM 7.5 MMOL in IV DEXTROSE 5% 100 ML IV SCH ×2 (11:09→14:10)
[2017-09-01 11:36] VITALS: BP 123/48
--- NOTE | 2017-09-01 12:00 | NUR ---
DR SANFORD SEE PATIENT AND LAB RESULT AND NEW ORDER IN CHART MED IV GIVEN ORDER
[2017-09-01] MEDS ORDERED: POTASSIUM CHLORIDE 20 MEQ TAB.PRT.SR PO ONE (13:00)
[2017-09-01 15:24] VITALS: BP 135/58
--- NOTE | 2017-09-01 17:30 | NUR ---
STABLE HEMODYNAMIC STATUS NO SOB PAIN UNDER CONTROL SAFETY MEASURE PROVIDED CALL LIGHT IN REACH AND BED ALARM ON
[2017-09-01 20:00] VITALS: BP 128/54
[2017-09-01] MEDS: LATANOPROST OPHT DROP 2.5 ML BOTTLE EACHEYE SCH (21:42)
[2017-09-02] MEDS: METOPROLOL TARTRATE 25 MG TABLET PO SCH ×3 (06:01→21:21)
[2017-09-02 06:45] LABS: BASOPHILS % (AUTO) 0.5 % (0.0-2.0); EOSINOPHILS # (AUTO) 0.1 K/uL (0.0-0.7); EOSINOPHILS % (AUTO) 1.2 % (0.0-7.0); HEMATOCRIT 33.9 % (31.2-41.9); HEMOGLOBIN 11.5 g/dL (10.9-14.3); LYMPHOCYTES # (AUTO) 1.3 K/uL (20.0-40.0); LYMPHOCYTES % (AUTO) 17.7 % (20.5-51.5); MEAN CORPUSCULAR HEMOGLOBIN 30.8 uug (24.7-32.8); MEAN CORPUSCULAR HGB CONC 34 g/dL (32.3-35.6); MEAN CORPUSCULAR VOLUME 90.8 fL (75.5-95.3); MONOCYTES # (AUTO) 0.5 K/uL (2.0-10.0); MONOCYTES % (AUTO) 6.3 % (0.0-11.0); NEUTROPHILS # (AUTO) 5.4 K/uL (1.8-8.9); NEUTROPHILS % (AUTO) 74.3 % (38.5-71.5); PLATELET COUNT (AUTO) 283 K/uL (179-408); RED BLOOD CELL COUNT(AUTO) 3.73 MIL/uL (3.63-4.92); WHITE BLOOD COUNT (AUTO) 7.2 K/uL (3.8-11.8)
[2017-09-02 06:47] VITALS: BP 160/61
[2017-09-02 07:24] LABS: ALANINE AMINOTRANSFERASE 75 U/L (14-59); ALKALINE PHOSPHATASE 85 U/L (50-136); ASPARTATE AMINOTRANSFERASE 41 U/L (15-37); BILIRUBIN,TOTAL 0.2 mg/dL (0.2-1.0); CARBON DIOXIDE 28 mmol/L (21-32); CHLORIDE 106 mmol/L (98-107); CREATININE 0.5 mg/dL (0.6-1.3); GLUCOSE 132 mg/dL (74-106); MAGNESIUM 2.2 mg/dL (1.8-2.4); PHOSPHOROUS 2.5 mg/dL (2.5-4.9); POTASSIUM 3.7 mmol/L (3.5-5.1); TOTAL PROTEIN, SERUM 5.5 g/dL (6.4-8.2); UREA NITROGEN, BLOOD 10 mg/dL (7-18)
--- NOTE | 2017-09-02 08:00 | NUR ---
RESTING WELL ORTX1 COOPERATE WELL NO SOB OR PAIN BED ALARM ON AND CALL LIGHT WITHIN REACH
[2017-09-02] MEDS: FAMOTIDINE 20 MG TABLET PO SCH (08:50)
[2017-09-02] MEDS: RIVAROXABAN 15 MG TABLET PO SCH ×2 (08:53→16:58)
[2017-09-02] MEDS: Z GUARD REMEDY PASTE 57 GM TUBE TOP SCH ×2 (08:54→21:22)
[2017-09-02 11:44] VITALS: BP 134/69
--- NOTE | 2017-09-02 13:00 | NUR ---
EAT LUNCH MOD AMT FAMILY AT BEDSIDE NO SOB OR PAIN AWAKE AND MORE ALERT ANSWER AND SPEAK SHORT WORD
[2017-09-02 15:40] VITALS: BP 124/48
--- NOTE | 2017-09-02 17:30 | NUR ---
RESTING WELL NO ACUTE DISTRESS OR SOB PAIN UNDER CONTROL SAFETY MEASURE PROVIDED CALL LIGHT IN REACH AND BED ALARM ON
[2017-09-02 20:00] VITALS: BP 160/53
[2017-09-02 20:44] VITALS: BP 160/53
[2017-09-02] MEDS: LATANOPROST OPHT DROP 2.5 ML BOTTLE EACHEYE SCH (21:22)
[2017-09-03 05:00] VITALS: BP 138/42
[2017-09-03] MEDS: METOPROLOL TARTRATE 25 MG TABLET PO SCH (06:00)
[2017-09-03 06:47] VITALS: BP 138/42
[2017-09-03] MEDS: FAMOTIDINE 20 MG TABLET PO SCH (09:05)
[2017-09-03] MEDS: RIVAROXABAN 15 MG TABLET PO SCH (09:07)
[2017-09-03] MEDS: Z GUARD REMEDY PASTE 57 GM TUBE TOP SCH (09:15)
[2017-09-03] MEDS ORDERED: CLON1PAT2 TD (09:23)
[2017-09-03] MEDS ORDERED: RIVA15TA PO (09:23)
[2017-09-03] MEDS ORDERED: METO25TA6 PO (09:23)
[2017-09-03 11:18] VITALS: BP 197/86
--- NOTE | 2017-09-03 13:54 | NUR ---
PT D/C TO [facility] . PT DAUGHTER AT BEDSIDE. PT D/C WITH ALL BELONGING, VALUABLES, PRESCRIPTIONS AND EXIT-CARE PACKET. GANN DISCONTINUED, PT URINATED AT 1255. IV AND ID BAND REMOVED.
== END 2017-09-03 13:30 | DRG 299 ==
LOC: ER 14:09 → TELE 21:18 → MED 08-29 14:05
PROVIDERS: ADMIT Internal Medicine; ATTEND Internal Medicine
DX: I82.413 Acute embolism and thrombosis of femoral vein, bilateral (principal); E43 Unspecified severe protein-calorie malnutrition; N17.0 Acute kidney failure with tubular necrosis; G93.41 Metabolic encephalopathy; E87.4 Mixed disorder of acid-base balance; D68.59 Other primary thrombophilia; E11.65 Type 2 diabetes mellitus with hyperglycemia; E87.0 Hyperosmolality and hypernatremia; N39.0 Urinary tract infection, site not specified; G20 Parkinson's disease; E86.0 Dehydration; F02.80 Dementia in other diseases classified elsewhere, unspecified severity, without behavioral disturbance, psychotic disturbance, mood disturbance, and anxiety; E87.6 Hypokalemia; E78.5 Hyperlipidemia, unspecified; F32.9 Major depressive disorder, single episode, unspecified; H26.9 Unspecified cataract; F41.9 Anxiety disorder, unspecified; Z68.21 Body mass index [BMI] 21.0-21.9, adult; I82.5Z2 Chronic embolism and thrombosis of unspecified deep veins of left distal lower extremity; Z79.01 Long term (current) use of anticoagulants; I95.1 Orthostatic hypotension; E53.8 Deficiency of other specified B group vitamins; Z87.820 Personal history of traumatic brain injury; H40.9 Unspecified glaucoma; R09.02 Hypoxemia; Z79.899 Other long term (current) drug therapy
CPT/HCPCS: 36415; 70030-TC; 70450; 73502; 73610; 83605; 83735; 84100; 84300; 84443; 84550; 85025; 85730; 87040; 87086; 87400; 92610; 93005; A4663; J0696; J1650; J3480; J3490; J7042; J7050; J7060; J7070